=== PATIENT | female | born 1990 | race Caucasian/White ===

== ENCOUNTER → 2017-05-31 | Outpatient (REF) | payer BC | LOC: M LAB REF 16:59 | PROVIDERS: ATTEND Advanced Practice Midwife | DX: Z12.4 Encounter for screening for malignant neoplasm of cervix (principal) ==

== ENCOUNTER → 2017-06-11 | Outpatient (CLI) | payer BC ==
--- NOTE | 2017-06-11 14:09 | REP ---
PELVIC ULTRASOUND: Real-time sonographic evaluation of the pelvis performed utilizing transabdominal and endovaginal technique. Bladder measures 7.4 x 3.6 x 7.1 cm. The uterus measures 8.2 x 4.4 x 5.6 cm. Endometrial thickness is 10 mm. Posterior fibroid is noted measuring 2.2 x 1.8 x 2.0 cm. There is no endometrial fluid collection. Right ovary measures 3.2 x 1.8 x 3.0 cm and left ovary 4.6 x 2.5 x 2.6 cm. Normal sized follicles are seen in the right ovary. In the left ovary complex follicle measures 1 cm in diameter. Small amount of free fluid is seen in the cul-de-sac. There is blood flow seen in each ovary with duplex Doppler evaluation, with no torsion. IMPRESSION: Posterior uterine fibroid 2.2 cm in maximum diameter. Mild free fluid. No adnexal mass. Signed by Tarun Parsons MD 06/11/2017 04:51 P
== END ==
LOC: M SMT 13:01
PROVIDERS: ATTEND Advanced Practice Midwife
DX: N83.209 Unspecified ovarian cyst, unspecified side (principal)

== ENCOUNTER → 2017-11-15 | Outpatient (CLI) | payer BC ==
[~2017-11-15] MED LIST: ISOVUE-370 76% 100ML VIAL (Q9967) As Ordered
== END ==
LOC: M RADPRO 11:53
DX: N97.9 Female infertility, unspecified (principal); N85.4 Malposition of uterus
CPT/HCPCS: 58340

== ENCOUNTER 2018-10-03 22:38 | Emergency (ER) | payer BC ==
[~2018-10-03] VITALS: Ht 149.9 cm; Wt 50.0 kg
[2018-10-03 23:25] LABS: BASO % 0.3 % (0.0-1.0); EOS # 0.1 10^3/uL (0.0-0.50); EOS % 0.6 % (0.0-3.0); HEMOGLOBIN 12.4 g/dl (12.0-15.5); LYMPH # 2.1 10^3/uL (1.5-6.5); LYMPH % 17.9 % (24.0-44.0); MEAN CORPUSCULAR HGB CONC 33.5 g/dl (32.0-36.5); MEAN CORPUSCULAR VOLUME 89.6 fl (80.0-96.0); MONO # 0.8 10^3/uL (0.0-0.8); MONO % 6.6 % (0.0-5.0); NEUTROPHILS # 8.7 10^3/uL (1.8-7.7); NEUTROPHILS % 74.3 % (36.0-66.0); PLATELET COUNT, AUTOMATED 363 10^3/uL (150-450); RED BLOOD COUNT 4.13 10^6/uL (4.00-5.40); WHITE BLOOD COUNT 11.6 10^3/uL (4.0-10.0)
[2018-10-03] MEDS ORDERED: NS 1,000 ML IV ONE (23:30)
[2018-10-03] MEDS ORDERED: ACETAMINOPHEN 325 MG TAB PO ONE (23:30)
[2018-10-03 23:43] LABS: ALBUMIN 3.8 GM/DL (3.2-5.2); ALT/SGPT 16 U/L (12-78); BILIRUBIN,TOTAL 0.1 MG/DL (0.2-1.0); BLOOD UREA NITROGEN 18 MG/DL (7-18); CALCIUM LEVEL 9.3 MG/DL (8.5-10.1); CARBON DIOXIDE LEVEL 27 MEQ/L (21-32); CHLORIDE LEVEL 104 MEQ/L (98-107); CREATININE FOR GFR 0.64 MG/DL (0.55-1.30); GLOMERULAR FILTRATION RATE > 60.0 (>60); GLUCOSE, FASTING 123 MG/DL (70-100); LIPASE 154 U/L (73-393); POTASSIUM SERUM 4.1 MEQ/L (3.5-5.1); SODIUM LEVEL 138 MEQ/L (136-145)
[2018-10-03 23:45] LABS: HCG, SERUM QUALITATIVE NEGATIVE (NEGATIVE)
[2018-10-04 00:22] LABS: APPEARANCE, URINE HAZY (CLEAR); BACTERIA, URINE AUTO 1+ (NEGATIVE); BILIRUBIN, URINE AUTO NEGATIVE (NEGATIVE); BLOOD, URINE BLOOD 3+ (NEGATIVE); CALCIUM OXALATE CRYSTALS SMALL; COLOR, URINE YELLOW (YELLOW); GLUCOSE, URINE (UA) AUTO NEGATIVE (NEGATIVE); KETONE, URINE AUTO NEGATIVE (NEGATIVE); LEUKOCYTE ESTERASE, URINE AUTO NEGATIVE (NEGATIVE); MUCUS, URINE SMALL (NEGATIVE); NITRITE, URINE AUTO NEGATIVE (NEGATIVE); PROTEIN, URINE AUTO 1+ mg/dL (NEGATIVE); RBC, URINE AUTO TNTC /HPF (0-3); SPECIFIC GRAVITY URINE AUTO 1.021 (1.002-1.035); SQUAMOUS EPITHELIAL CELL UR AU 0 /HPF (0-6); UROBILINOGEN, URINE AUTO 0.2 mg/dL (0.0-2.0); WBC, URINE AUTO 2 /HPF (0-3)
--- NOTE | 2018-10-04 01:05 | REPVR ---
EXAM: US Duplex Artery or Vein of the Abdominal and/or Reproductive Organs, Limited EXAM DATE/TIME: 10/04/2018 12:39 AM CLINICAL HISTORY: 28 years old, female; Pain; Pelvic pain; Prior surgery; Surgery date: 1-6 months; Surgery type: Fibroid and endometriosis removed in june; Additional info: R flank pain TECHNIQUE: Real-time duplex ultrasound scan of the arterial or venous flow of the abdomen and/or reproductive organs, with color Doppler flow and spectral waveform analysis. COMPARISON: US PELVIC NON OB COMPLETE 06/11/2017 1:12 PM FINDINGS: Right ovary: Normal arterial waveform. Left ovary: Normal arterial waveform. IMPRESSION: No evidence of ovarian torsion bilaterally. EXAM: US Pelvis, Transvaginal EXAM DATE/TIME: 10/04/2018 12:39 AM CLINICAL HISTORY: 28 years old, female; Pain; Pelvic pain; Prior surgery; Surgery date: 1-6 months; Surgery type: Fibroid and endometriosis removed in june; Additional info: R flank pain TECHNIQUE: Real-time transvaginal pelvic ultrasound with image documentation. Transvaginal imaging was used for better evaluation of the endometrium and adnexa. COMPARISON: US PELVIC NON OB COMPLETE 06/11/2017 1:12 PM FINDINGS: Uterus/cervix: Uterus measures 8 x 4 x 5.5 cm. Endometrial stripe 1 cm. Right adnexa: Right ovary measures 3.8 x 4.5 x 2.7 cm. There is a complex possibly hemorrhagic 1.5 x 1.2 x 1.3 cm right ovarian cyst. Left adnexa: Left ovary measures 2.7 x 3.7 x 2 cm. There is a complex possibly hemorrhagic 1.4 x 1.0 x 1.1 cm left ovarian cyst. Free fluid: Trace free fluid in the cul-de-sac. Bladder: Empty bladder. Bladder cannot be evaluated with this probe. IMPRESSION: Bilateral ovarian cysts probably containing hemorrhagic or proteinaceous debris. Trace free fluid in the cul-de-sac. Electronically signed by: Diaz De Souza On 10/04/2018 01:04:52 AM
--- NOTE | 2018-10-04 01:06 | REPVR ---
EXAM: US Retroperitoneal Limited, Kidneys EXAM DATE/TIME: 10/04/2018 12:39 AM CLINICAL HISTORY: 28 years old, female; Pain; Abdominal pain; Flank; Right lower quadrant (rlq); Additional info: R flank pain TECHNIQUE: Real-time ultrasound of the retroperitoneum with image documentation. Examination was focused on the kidneys. COMPARISON: No relevant prior studies available. FINDINGS: Right kidney: Right hydronephrosis. Left kidney: No stones. No hydronephrosis. Bladder: Contracted urinary bladder. IMPRESSION: Right hydronephrosis. Electronically signed by: Diaz De Souza On 10/04/2018 01:05:49 AM
[2018-10-04] MEDS ORDERED: FLOM0.4C39 PO (01:36)
[2018-10-04] MEDS ORDERED: CEPHALEXIN 500 MG CAP PO ONE (01:45)
[2018-10-04 01:51] VITALS: BP 125/64
== END 2018-10-04 02:03 | disposition home or self-care (01) ==
LOC: M ED 22:38
DX: N13.30 Unspecified hydronephrosis (principal); N20.1 Calculus of ureter

== ENCOUNTER → 2018-11-07 | Outpatient (CLI) | payer BC ==
[~2018-11-07] MED LIST changes: +FLOM0.4C39 PO; -ISOVUE-370 76% 100ML VIAL (Q9967) As Ordered
== END ==
LOC: M SMT 10:38
PROVIDERS: ATTEND Obstetrics & Gynecology Reproductive Endocrinology
DX: E28.9 Ovarian dysfunction, unspecified (principal)

== ENCOUNTER → 2019-01-30 | Outpatient (CLI) | payer BC ==
[2019-01-30 18:14] LABS: HCG, SERUM QUANTITATIVE < 1.0 MIU/ML
[2019-01-30 18:23] LABS: PROGESTERONE 4.47 NG/ML
== END ==
LOC: M SMT 12:59
PROVIDERS: ATTEND Obstetrics & Gynecology
DX: N91.2 Amenorrhea, unspecified (principal)

== ENCOUNTER → 2019-02-23 | Outpatient (CLI) | payer BC ==
[2019-02-23 13:39] LABS: THYROID STIMULATING HORMONE 1.81 uIU/ML (0.358-3.740)
[2019-02-23 13:46] LABS: ESTRADIOL 484.5 PG/ML
[2019-02-23 14:21] LABS: PROGESTERONE 53.75 NG/ML
== END ==
LOC: M SMT 10:21
PROVIDERS: ATTEND Obstetrics & Gynecology Reproductive Endocrinology
DX: E28.9 Ovarian dysfunction, unspecified (principal)

== ENCOUNTER → 2019-03-23 | Outpatient (CLI) | payer BC ==
[2019-03-23 19:17] LABS: THYROID STIMULATING HORMONE 0.908 uIU/ML (0.358-3.740)
[2019-03-23 19:19] LABS: ESTRADIOL 138.9 PG/ML; PROGESTERONE 52.74 NG/ML
== END ==
LOC: M SMT 11:52
PROVIDERS: ATTEND Obstetrics & Gynecology Reproductive Endocrinology
DX: E28.9 Ovarian dysfunction, unspecified (principal)

== ENCOUNTER 2019-04-08 23:09 | Emergency (ER) | payer BC ==
[~2019-04-08] VITALS: Ht 149.9 cm; Wt 50.0 kg
[2019-04-09 00:08] LABS: BASO # 0.1 10^3/uL (0.0-0.2); BASO % 0.7 % (0.0-1.0); EOS # 0.1 10^3/uL (0.0-0.50); EOS % 1.3 % (0.0-3.0); HEMOGLOBIN 12.2 g/dl (12.0-15.5); LYMPH # 2.4 10^3/uL (1.5-6.5); LYMPH % 35.1 % (24.0-44.0); MEAN CORPUSCULAR HEMOGLOBIN 30.1 pg (27.0-33.0); MEAN CORPUSCULAR VOLUME 91.4 fl (80.0-96.0); MONO # 0.5 10^3/uL (0.0-0.8); MONO % 7.7 % (0.0-5.0); NEUTROPHILS # 3.7 10^3/uL (1.8-7.7); NEUTROPHILS % 54.8 % (36.0-66.0); PLATELET COUNT, AUTOMATED 366 10^3/uL (150-450); RED BLOOD COUNT 4.05 10^6/uL (4.00-5.40); WHITE BLOOD COUNT 6.8 10^3/uL (4.0-10.0)
[2019-04-09 00:19] LABS: HCG, SERUM QUALITATIVE NEGATIVE (NEGATIVE)
[2019-04-09 00:24] LABS: INR 1.01
[2019-04-09 00:25] LABS: PARTIAL THROMBOPLASTIN TIME 25.9 SECONDS (25.0-38.4)
[2019-04-09 00:43] LABS: BLOOD UREA NITROGEN 10 MG/DL (7-18); CALCIUM LEVEL 9.7 MG/DL (8.5-10.1); CARBON DIOXIDE LEVEL 25 MEQ/L (21-32); CHLORIDE LEVEL 104 MEQ/L (98-107); CREATININE FOR GFR 0.65 MG/DL (0.55-1.30); ETHYL ALCOHOL (ETHANOL) 0.008 % (0.000-0.010); GLOMERULAR FILTRATION RATE > 60.0 (>60); GLUCOSE, FASTING 89 MG/DL (70-100); POTASSIUM SERUM 3.8 MEQ/L (3.5-5.1); SODIUM LEVEL 139 MEQ/L (136-145)
[2019-04-09] MEDS ORDERED: NS 1,000 ML IV ONE (01:45)
[2019-04-09 02:06] VITALS: BP 118/70
--- NOTE | 2019-04-09 05:44 | ECGEPIP ---
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
== END 2019-04-09 02:13 | disposition home or self-care (01) ==
LOC: M ED 23:09
DX: R55 Syncope and collapse (principal); E28.2 Polycystic ovarian syndrome
CPT/HCPCS: 80048; 81001; 84443; 84703; 85025; 85610; 85730; 93005; 93041; 94760; 96360; 99285; G0480

== ENCOUNTER → 2020-01-09 | Outpatient (CLI) | payer BC ==
[2020-01-09 14:50] LABS: THYROID STIMULATING HORMONE 1.04 uIU/ML (0.358-3.740)
[2020-01-11 10:21] LABS: PROGESTERONE 17.16 NG/ML
== END ==
LOC: M WUC 12:45
DX: Z36.89 Encounter for other specified antenatal screening (principal)

== ENCOUNTER → 2020-01-11 | Outpatient (REF) | payer OTHER | LOC: M PLALAB 13:36 | PROVIDERS: ATTEND Obstetrics & Gynecology | DX: Z32.01 Encounter for pregnancy test, result positive (principal) ==

== ENCOUNTER → 2020-01-14 | Outpatient (CLI) | payer BC, OTHER ==
[2020-01-14 14:31] LABS: ESTRADIOL 106.6 PG/ML; PROGESTERONE 21.04 NG/ML
== END ==
LOC: M PLALAB 11:23
DX: Z33.1 Pregnant state, incidental (principal)

== ENCOUNTER → 2020-01-18 | Outpatient (CLI) | payer BC ==
[2020-01-18 13:47] LABS: ESTRADIOL 146.3 PG/ML; PROGESTERONE 23.96 NG/ML
== END ==
LOC: M PLALAB 11:50
PROVIDERS: ATTEND Student in an Organized Health Care Education/Training Program
DX: Z33.1 Pregnant state, incidental (principal)

== ENCOUNTER → 2020-01-21 | Outpatient (CLI) | payer BC ==
--- NOTE | 2020-01-22 01:41 | REP ---
Clinical: Dating and viability. Technique: Transvaginal first trimester obstetrical ultrasound with color Doppler evaluation. Findings: Ultrasound examination demonstrates single live early intrauterine . Gestational sac with yolk sac and pole are identified. CRL of 6 mm corresponds to 6 weeks 3 days gestational age with estimated date of delivery 09/12/2020. heart rate equals 130 beats per minute. No gross abnormalities are identified. Maternal ovaries are normal with right corpus luteal cyst measuring 2.3 cm maximal diameter. Right intramural fibroid measures 1.8 x 1.7 x 1.9 cm. Impression: 1. Single live early intrauterine at 6 weeks 3 days gestational age. 2. Complete anatomical assessment should be performed at 19-20 weeks.
== END ==
LOC: M WHC 12:48
PROVIDERS: ATTEND Student in an Organized Health Care Education/Training Program
DX: O34.11 Maternal care for benign tumor of corpus uteri, first trimester (principal); D25.1 Intramural leiomyoma of uterus; Z3A.01 Less than 8 weeks gestation of pregnancy

== ENCOUNTER → 2020-01-29 | Outpatient (CLI) | payer BC | LOC: M WHC 09:33 | PROVIDERS: ATTEND Student in an Organized Health Care Education/Training Program | DX: Z53.9 Procedure and treatment not carried out, unspecified reason (principal) ==

== ENCOUNTER → 2020-03-25 | Outpatient (REF) | payer BC ==
[2020-03-25 18:42] LABS: CHLAMYDIA DNA AMPLIFICATION NEGATIVE (NEGATIVE); GC DNA AMPLIFICATION NEGATIVE (NEGATIVE)
== END ==
LOC: M LAB REF 15:52
PROVIDERS: ATTEND Physician Assistant
DX: R10.30 Lower abdominal pain, unspecified (principal); Z3A.16 16 weeks gestation of pregnancy

== ENCOUNTER → 2020-04-05 | Outpatient (REF) | payer BC | LOC: M SFHCWAGY 14:58 | PROVIDERS: ATTEND Advanced Practice Midwife | DX: R35.0 Frequency of micturition (principal) ==

== ENCOUNTER → 2020-04-19 | Outpatient (CLI) | payer BC ==
--- NOTE | 2020-06-13 10:08 | REP ---
OBSTETRIC ULTRASOUND FOR ANATOMY Delay in reporting results from malfunction of the hospital computer system as the result of a malware attack. There is a single intrauterine gestation in a transverse lie with the head to the maternal right. The placenta is anterior with grade 0 maturity. There is no previa or abruptio. heart rate is 155 beats per minute. The cervix measures 3.0 cm in length. Gestational age based on [facility] ultrasound is 19 weeks 0 days. Estimated date of delivery (PRISCILLA) is 09/10/2020. The following anatomic structures are suboptimally demonstrated because of position: Cervical spine. A dedicated follow-up study of the cervical spine might be considered. The following structures are identified and are unremarkable: Cisterna magna, cavum septum pellucidum, thalami, stomach, kidneys, four chamber heart, cardiac ventricular outflow tracts, bladder, three-vessel cord, cord insertion, upper and lower extremities, face and upper lip. MTDD
== END ==
LOC: M WHC 06:28
PROVIDERS: ATTEND Obstetrics & Gynecology
DX: Z34.82 Encounter for supervision of other normal pregnancy, second trimester (principal); Z3A.19 19 weeks gestation of pregnancy

== ENCOUNTER → 2020-05-06 | Outpatient (CLI) | payer BC ==
--- NOTE | 2020-06-17 13:51 | REP ---
OBSTETRIC SONOGRAPHY HISTORY: Supervision of . Second trimester follow-up spine. Estimated date of delivery (PRISCILLA) 09/10/2020. This report was delayed due to a protracted episode of network disruption experienced by this facility. FINDINGS: Scanning through the gravid uterus demonstrates a viable single intrauterine gestation in a cephalic lie. motion is observed and heart rate is recorded at 142 beats per minute. The placenta is anterior grade 1 without evidence of placenta previa or abruption. Amniotic fluid is subjectively normal. The following anatomic structures are identified and felt to be unremarkable: spine, left-sided stomach, kidneys and bladder, abdominal wall cord insertion, three-vessel cord. BIOMETRY CHART: BPD 50 mm 20 weeks 1 day Head Circumference 187 mm 21 weeks 1 day Abdominal Circumference 164 mm 21 weeks 3 days Femur Length 37 mm 21 weeks 5 days Humeral Length 34 mm 21 weeks 4 days Estimated Weight 425 g 25th percentile IMPRESSION: Viable single intrauterine gestation 21 weeks 3 days by today's composite criteria. Estimated date of delivery (PRISCILLA) by today's sonography 09/13/2020. MTDD
== END ==
LOC: M WHC 12:13
PROVIDERS: ATTEND Obstetrics & Gynecology
DX: Z34.82 Encounter for supervision of other normal pregnancy, second trimester (principal); Z3A.21 21 weeks gestation of pregnancy

== ENCOUNTER → 2020-06-07 | Outpatient (CLI) | payer BC ==
[2020-06-07 13:25] LABS: HEMATOCRIT 33.2 % (36.0-47.0); MEAN CORPUSCULAR HEMOGLOBIN 30.5 pg (27.0-33.0); MEAN CORPUSCULAR HGB CONC 33.1 g/dl (32.0-36.5); PLATELET COUNT, AUTOMATED 309 10^3/uL (150-450); RED BLOOD COUNT 3.61 10^6/uL (4.00-5.40); WHITE BLOOD COUNT 8.3 10^3/uL (4.0-10.0)
== END ==
LOC: M PLALAB 09:30
PROVIDERS: ATTEND Obstetrics & Gynecology
DX: Z34.82 Encounter for supervision of other normal pregnancy, second trimester (principal); Z3A.00 Weeks of gestation of pregnancy not specified
CPT/HCPCS: 36415; 82950; 85027; 86850; 86900; 86901; J2790

== ENCOUNTER → 2020-06-20 | Outpatient (CLI) | payer BC | LOC: M LAB 08:07 | PROVIDERS: ATTEND Advanced Practice Midwife | DX: Z34.82 Encounter for supervision of other normal pregnancy, second trimester (principal); Z3A.00 Weeks of gestation of pregnancy not specified ==

== ENCOUNTER → 2020-07-20 | Outpatient (CLI) | payer BC ==
--- NOTE | 2020-07-21 11:45 | REP ---
INDICATION: GROWTH COMPARISON: 05/06/2020 TECHNIQUE: Transabdominal obstetrical ultrasound with color Doppler evaluation. FINDINGS: Examination demonstrates a single live intrauterine in breech presentation. motion is identified by technologist. Placenta is noted anterior and grade 2 without evidence for placenta previa or abruption. Amniotic fluid volume is normal. Cervix measures 3.1 cm in length and appears closed. No evidence for nuchal cord. Gestational age by current measurements 31 weeks 4 days with PRISCILLA 09/17/2020. FHR equals 143 beats per minute. WILFRID: 13.7 cm BPD: 7.5 cm 30 weeks 1 day HC: 30.1 cm 33 weeks 3 days AC: 27.7 cm 31 weeks 5 days FL: 6.0 cm 31 weeks 2 days HL: 5.4 cm 31 weeks 2 days HC/AC: 1.09 Estimated weight 1803 grams (40thpercentile). IMPRESSION: Single live advanced gestation in breech presentation demonstrating appropriate estimated weight <Electronically signed by Ish Jacob > 07/21/20 1147
== END ==
LOC: M WHC 09:09
PROVIDERS: ATTEND Obstetrics & Gynecology
DX: O34.29 Maternal care due to uterine scar from other previous surgery (principal)

== ENCOUNTER → 2020-08-08 | Outpatient (REF) | payer BC ==
[~2020-08-08] MED LIST changes: +PRENTAB9 PO
== END ==
LOC: M SFHCWAGY 16:56
PROVIDERS: ATTEND Obstetrics & Gynecology
DX: Z3A.35 35 weeks gestation of pregnancy (principal)

== ENCOUNTER → 2020-08-17 | Outpatient (CLI) | payer BC ==
[~2020-08-17] MED LIST changes: +DOCU100C16 PO; +IBUP80TA PO; +PERCOCET PO
== END ==
LOC: M LABSMTC 10:31
PROVIDERS: ATTEND Anesthesiology
DX: Z01.812 Encounter for preprocedural laboratory examination (principal); Z20.828 Contact with and (suspected) exposure to other viral communicable diseases

== ENCOUNTER 2020-08-22 05:40 | Inpatient (IN) | payer BC ==
[~2020-08-22] VITALS: Ht 149.9 cm; Wt 60.9 kg
[2020-08-22] VITALS (9 sets, daily range): BP systolic 104–137; BP diastolic 58–82
[~2020-08-22 05:40] MED LIST changes: -DOCU100C16 PO; -IBUP80TA PO; -PERCOCET PO
[2020-08-22] MEDS ORDERED: BICITRA 30ML SOLN UDC PO ONE (06:00)
[2020-08-22] MEDS ORDERED: LR 1,000 ML IV ONE (06:00)
[2020-08-22] MEDS ORDERED: ceFAZolin SOD 2 GM in IV 1 EA IV ONE (06:00)
[2020-08-22] MEDS ORDERED: LR 1,000 ML IV SCH ×2 (06:15→09:15)
[2020-08-22 06:36] LABS: HEMATOCRIT 40.2 % (36.0-47.0); MEAN CORPUSCULAR HEMOGLOBIN 28.8 pg (27.0-33.0); MEAN CORPUSCULAR HGB CONC 32.3 g/dl (32.0-36.5); MEAN CORPUSCULAR VOLUME 88.9 fl (80.0-96.0); PLATELET COUNT, AUTOMATED 284 10^3/uL (150-450); RED BLOOD COUNT 4.52 10^6/uL (4.00-5.40); WHITE BLOOD COUNT 8.1 10^3/uL (4.0-10.0)
[2020-08-22] MEDS ORDERED: MORPHINE PRES-FREE INJ 10 MG/10 ML VIAL (J2274) As Ordered ONE (07:45)
[2020-08-22] MEDS ORDERED: NALOXONE INJ 0.4MG/1ML VIAL (J2310 PER 1MG) IV PRN ×2 (07:49)
[2020-08-22] MEDS ORDERED: ONDANSETRON 4MG/2ML VIAL IV PRN ×3 (07:49→09:15)
[2020-08-22] MEDS ORDERED: diphenhydrAMINE 50MG/ML VIAL (J1200) IV PRN ×2 (07:49→09:15)
[2020-08-22] MEDS ORDERED: ONDANSETRON 4MG/2ML VIAL As Ordered ONE (07:55)
[2020-08-22] MEDS ORDERED: ePHEDrine SULFATE 25 MG/5 ML(5MG/ML) SYRINGE As Ordered ONE (07:55)
[2020-08-22] MEDS ORDERED: OXYTOCIN INJ 10 UNITS/ML VIAL (J2590) As Ordered ONE (07:55)
[2020-08-22] MEDS ORDERED: propofoL 200 MG/20 ML VIAL As Ordered ONE (08:10)
[2020-08-22] MEDS ORDERED: KETOROLAC 60MG 2ML VIAL As Ordered ONE (08:11)
[2020-08-22] MEDS ORDERED: fentaNYL 100 MCG/2 ML INJECTION (J3010) As Ordered ONE (08:14)
[2020-08-22] MEDS: LR 1,000 ML IV SCH ×2 (08:49→16:49)
[2020-08-22] MEDS ORDERED: OXYTOCIN DRIP 30 UNITS in IV 1 EA IV SCH (08:49)
[2020-08-22] MEDS ORDERED: OXYTOCIN 30 UNITS IN 0.9% NaCl 500ML IV BAG (J2590) As Ordered ONE (08:54)
[2020-08-22] MEDS ORDERED: RHOGAM 300 MCG (1500 IU) INJ (J2790) IM SCH (09:00)
[2020-08-22] MEDS: DOCUSATE SODIUM 100MG CAPSULE PO SCH ×2 (09:00→20:06)
[2020-08-22] MEDS ORDERED: MEASLES,MUMPS,RUBELLA VACCINE INJ (MMR-II) (90707) SC SCH (09:00)
[2020-08-22] MEDS ORDERED: PROMETHAZINE 25 MG TAB PO PRN (09:00)
[2020-08-22] MEDS: PRENATAL VITAMINS CHEWABLE TABLET PO SCH (09:00)
[2020-08-22] MEDS ORDERED: ONDANSETRON 4 MG TAB PO PRN (09:00)
[2020-08-22] MEDS ORDERED: PERCOCET 5MG/325MG TAB PO PRN ×2 (09:00→09:15)
--- NOTE | 2020-08-22 09:01 | ROOPDOC ---
[facility] Report Of Operation Report of Operation DATE OF PROCEDURE: 08/22/2020 PREPROCEDURE DIAGNOSES: 37+ weeks gestation, history of myomectomy, breech presentation POSTPROCEDURE DIAGNOSES: Same PROCEDURE: Primary low transverse section SURGEON: Casey Hernandez DO FACKRISTINA BOTTOM TURNING LATHE TURNER: Marcell Rosario CNM (Essential role in retraction, extraction, and closure of all tissue layers) ANESTHESIA: Spinal with Duramorph ESTIMATED BLOOD LOSS: 500 mL. IV FLUIDS: 1100 mL LR URINE OUTPUT: 250 mL COMPLICATIONS: None. PREOPERATIVE ANTIBIOTICS: Ancef 2g IV x 1. COMPLICATIONS: none DATA: Apgars 8 and 9. Birthweight 2920 g, 6 lbs 7 oz. Female. SPECIMENS: none PRIMARY INDICATION FOR : history of myomectomy, 37+ weeks (and breech presentation) DESCRIPTION OF PROCEDURE: The patient was counseled on the risks, benefits, indications and alternatives of the procedure. Informed consent was obtained. She was taken to the operating room with IV running and placed on the operating table in the dorsal supine position with a leftward tilt. Regional anesthesia/epidural was bolused and found to be adequate. Sequential compression devices were placed on the lower extremities. A Carpenter catheter was placed under sterile conditions. She was prepared and draped in normal sterile fashion. A time out was performed per protocol. Epidural anesthesia was again found to be adequate. A Pfannenstiel skin incision was made with the 10 blade. The 10 blade was used to dissect down to the level of the rectus sheath fascia. The rectus sheath pressure was incised midline and this was extended bilaterally with Tirado scissors , and manual stretch. The rectus muscle bellies were dissected off the rectus sheath fascia superiorly and inferiorly using both sharp and blunt dissection. The midline was identified. The peritoneum was identified and entered digitally. The peritoneal opening was extended with manual stretch. The Mobius retractor was placed. The vesicouterine peritoneum was dissected with Metzenbaum scissors to create the bladder flap. A low transverse uterine incision was made with the 10 blade. This was extended with manual stretch. The amniotic sac was punctured, and clear fluid was noted. The baby was noted to be in the leida breech presentation. Typical breech maneuvers were performed. No dystocia was encountered. The cord was doubly clamped and cut, and the baby was handed off to awaiting care. data shown above. Cord blood obtained. The placenta was removed manually. The intrauterine cavity was cleared of all clot and debris. The hysterotomy was closed with 0 Vicryl in running locked fashion. This was reinforced with a second imbricating layer using 0 Vicryl in running fashion. Excellent hemostasis of the hysterotomy was noted. The pelvis was irrigated and the fluid suctioned. The Mobius retractor was removed. The peritoneum was closed with 3-0 Vicryl running fashion. The rectus muscle bellies were reapproximated with interrupted stitches using 3-0 Vicryl. The rectus muscles bellies were hemostatic. The rectus sheath fascia was closed with 0 Vicryl running fashion. The subcutaneous layer was irrigated and the fluid suctioned. Small bleeding vessels were cauterized with Bovie. Excellent hemostasis was noted. The subcutaneous layer was reapproximated with 3-0 Vicryl running fashion. Skin was closed with 3-0 Monocryl in subcuticular fashion. An Optifoam bandage was placed over the closed incision. Sponge, needle and instrument counts were correct per protocol throughout the procedure. The patient tolerated the entire procedure very well. She was transferred to the PACU in stable condition. DO JAMIR Lam JONATHAN R. DO Aug 22, 2020 09:01
[2020-08-22] MEDS ORDERED: fentaNYL 100 MCG/2 ML INJECTION (J3010) IV PRN (09:15)
[2020-08-22] MEDS ORDERED: METOCLOPRAMIDE INJ 10MG/2ML VIAL (J2765 PER 1) IV PRN (09:15)
[2020-08-22] MEDS ORDERED: IBUP80TA PO (09:40)
[2020-08-22] MEDS ORDERED: DOCU100C16 PO (09:40)
[2020-08-22] MEDS ORDERED: PERCOCET PO (09:40)
[2020-08-22] MEDS: METOCLOPRAMIDE INJ 10MG/2ML VIAL (J2765 PER 1) IV PRN ×2 (11:14→19:57)
[2020-08-22] MEDS: PERCOCET 5MG/325MG TAB PO PRN (11:15)
[2020-08-22] MEDS: KETOROLAC 30 MG/ML 1ML VIAL IV SCH ×2 (16:59→23:57)
[2020-08-23 02:00] VITALS: BP 119/54
[2020-08-23] MEDS: KETOROLAC 30 MG/ML 1ML VIAL IV SCH (05:04)
[2020-08-23 05:33] VITALS: BP 109/70
[2020-08-23 07:15] LABS: HEMATOCRIT 29.5 % (36.0-47.0); MEAN CORPUSCULAR HGB CONC 31.9 g/dl (32.0-36.5); PLATELET COUNT, AUTOMATED 202 10^3/uL (150-450); RED BLOOD COUNT 3.24 10^6/uL (4.00-5.40); WHITE BLOOD COUNT 11.7 10^3/uL (4.0-10.0)
[2020-08-23 07:18] LABS: HEMOGLOBIN 9.4 g/dl (12.0-15.5)
--- NOTE | 2020-08-23 08:05 | IPNPDOC ---
Progress Note Date of Service: Aug 23, 2020 Day#: 1 Progress Note SUBJECT: Aniya is a 30-year-old 3 now Para 1-0-0-1 status post section due to prior myomectomy at 37 weeks' doing well day # 1. She has been ambulating, voiding spontaneously without issue and tolerating regular diet. Breast feeding without issue. Reports lochia is like a normal period. Pain well controlled with IV medications, plan to switch to oral medications today. Denies passing flatus, ambulation encouraged. OBJECTIVE: VITAL SIGNS: Within normal limits, afebrile. Alert and oriented times three. Breath sounds clear to auscultation, no accessory muscle use. Cardiovascular: Denies chest pain, SOB. Abdomen: Fundus firm at U-2. Soft, NTTP. Minimal lochia. ASSESSMENT: Post operative Day 1 PLAN: 1. Percocet and Motrin for pain as ordered. 2. Encourage breast feeding and ambulation. 3. May shower today. 4. Routine nursing care and support. VS, I&O, 24H, [place] Vital Signs/I&O Vital Signs Date Time Temp Pulse Resp B/P (MAP) Pulse Ox O2 Delivery O2 Flow Rate FiO2 08/23/20 05:33 98.3 69 16 109/70 (83) 96 Room Air I&O- Last 24 Hours up to 6 AM 08/23/20 05:59 Intake Total 865 ml Output Total 2350 ml Balance -1485 ml Laboratory Data 24H LABS Laboratory Tests 2 08/23/20 06:52: Nucleated Red Blood Cells % (auto) 0.0 CBC/BMP Laboratory Tests 08/23/20 06:52 KEVIN CHAUDHARI CNM Aug 23, 2020 07:45
[2020-08-23] MEDS: PRENATAL VITAMINS CHEWABLE TABLET PO SCH (09:00)
[2020-08-23 09:50] VITALS: BP 119/69
[2020-08-23] MEDS: DOCUSATE SODIUM 100MG CAPSULE PO SCH ×2 (09:51→20:18)
[2020-08-23] MEDS: IBUPROFEN 800 MG TAB PO SCH ×2 (12:31→20:18)
[2020-08-23 14:00] VITALS: BP 121/58
[2020-08-23] MEDS: ACETAMINOPHEN 500 MG TAB PO PRN (15:13)
[2020-08-23 18:00] VITALS: BP 117/64
[2020-08-23] MEDS: PERCOCET 5MG/325MG TAB PO PRN (18:22)
[2020-08-23] MEDS ORDERED: SIMETHICONE 80 MG CHEW TAB PO PRN (20:15)
[2020-08-23 22:00] VITALS: BP 123/78
[2020-08-24 02:00] VITALS: BP 126/77
[2020-08-24] MEDS: PERCOCET 5MG/325MG TAB PO PRN ×2 (02:16→08:02)
[2020-08-24] MEDS: IBUPROFEN 800 MG TAB PO SCH (05:21)
[2020-08-24 06:00] VITALS: BP 117/66
--- NOTE | 2020-08-24 06:41 | DS.PDOC ---
Discharge Summary General Date of Admission Aug 22, 2020 at 05:40 Date of Discharge August 24, 2020 Attending Physician: FAUSTO ENNIS MD Discharge Summary PROCEDURES PERFORMED DURING STAY: [None]. ADMITTING DIAGNOSES: 1. 37+ weeks, prior myomectomy, breech. DISCHARGE DIAGNOSES: 1. delivered. COMPLICATIONS/CHIEF COMPLAINT: History Of Myomectomy. HISTORY OF PRESENT ILLNESS: 30 yo at 37 weeks gestation presents for section due to previous myomectomy, as well as current breech presentation. HOSPITAL COURSE: On 08/22/2020 the patient underwent a section for a 6# 7 oz. female . There were no complications. Her post operative course was unremarkable >She had adequate return of bladder and bowel function. She was deemed stable for discharge POD#2. DISCHARGE MEDICATIONS: Please see below. ALLERGIES: Please see below. PHYSICAL EXAMINATION ON DISCHARGE: VITAL SIGNS: Please see below. GENERAL: NAD HEENT: WNL CARDIOVASCULAR EXAMINATION: RRR RESPIRATORY EXAMINATION: CTA ABDOMINAL EXAMINATION: NT, dressing c/d/i EXTREMITIES: NT LABORATORY DATA: Please see below. PROGNOSIS: good ACTIVITY: As tolerated. DIET: reg DISCHARGE PLAN: DISPOSITION: . DISCHARGE INSTRUCTIONS: 1. fu 2 weeks 2. Pain management reviewed DISCHARGE CONDITION: Stable. TIME SPENT ON DISCHARGE: Greater than 10 minutes. Vital Signs/I&Os Vital Signs Date Time Temp Pulse Resp B/P (MAP) Pulse Ox O2 Delivery O2 Flow Rate FiO2 08/24/20 06:00 98.3 72 16 117/66 (83) 08/24/20 02:46 Room Air 08/23/20 18:00 96 I&O- Last 24 Hours up to 6 AM 08/24/20 06:00 Intake Total 900 ml Balance 900 ml Laboratory Data Labs 24H Laboratory Tests 2 08/23/20 06:52: Nucleated Red Blood Cells % (auto) 0.0 CBC/BMP Laboratory Tests 08/23/20 06:52 Discharge Medications Scheduled Docusate Sodium (Docusate Sodium) 100 Mg Capsule, 100 MG PO BID Ibuprofen (Ibuprofen) 800 Mg Tablet, 800 MG PO Q8H No.137/Iron/Folic Acd ( Vitamin Tablet) 1 Each Tablet, 1 TAB PO DAILY, (Reported) Scheduled PRN Oxycodone/Acetaminophen (Oxycodone-Acetaminophen 5-325) 1 Each Tablet, 1 TAB PO Q4H PRN for MILD/MODERATE PAIN (PS 1-7) Allergies Coded Allergies: No Known Allergies (Unverified , 08/12/20) FAUSTO ENNIS MD Aug 24, 2020 06:41
[2020-08-24] MEDS: DOCUSATE SODIUM 100MG CAPSULE PO SCH (08:02)
[2020-08-24] MEDS: PRENATAL VITAMINS CHEWABLE TABLET PO SCH (09:00)
[2020-08-24] MEDS: ACETAMINOPHEN 500 MG TAB PO PRN (11:26)
== END 2020-08-24 12:30 | disposition home or self-care (01) | DRG 540 ==
LOC: M LDI 05:40 → M OBS 10:08
PROVIDERS: ADMIT Obstetrics & Gynecology; ATTEND Obstetrics & Gynecology
PROC: 10D00Z1 Extraction of Products of Conception, Low, Open Approach (ICD-10-PCS; principal; 2020-08-22 07:30)
DX: O32.1XX0 Maternal care for breech presentation, not applicable or unspecified (principal); Z3A.37 37 weeks gestation of pregnancy; Z37.0 Single live birth